=== PATIENT | female | born 1980 | race Caucasian/White ===

== ENCOUNTER 2018-05-22 13:44 | Emergency (ER) | payer BC ==
[~2018-05-22] VITALS: Ht 167.6 cm; Wt 72.1 kg
--- NOTE | 2018-05-22 13:50 | NUR ---
PT TO ROOM 11 TO IRRIGATE WOUND. WOUND IRRIGATE WITH STERILE WATER. 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
--- NOTE | 2018-05-22 14:07 | NUR ---
DIGITAL BLOCK COMPLETED. GAUZE DRESSING APPLIED AND SECURED WITH COBAN. BLEEDING CONTROLLED. FINGER PINK AND WARM.
[2018-05-22] MEDS ORDERED: NEOMYCIN/POLYMYX/BACITR OINT 0.9 GM PKT TOP ONE (14:15)
[2018-05-22] MEDS ORDERED: BUPIVACAINE HCL 0.5% 10ML MPF VIAL INJ ONE (15:00)
--- NOTE | 2018-05-22 15:25 | Diagnostic Imaging Report ---
Hand Complete CPT code: 49402 Indication:Crush injury Technique: Three views of the left hand obtained Comparison: None. Findings: Distal radius and ulna appear intact. Carpal bones appear generally well aligned. Fracture through the tuft of the distal phalanx of the fifth digit with 4 mm of separation between the proximal and distal fracture fragments. There is overlying soft tissue swelling. No dislocation of the proximal or distal IP joints. Remainder of the digits are intact. No radiopaque foreign bodies in the soft tissues surrounding the fifth digit. There are punctate densities over the third digit that are on the cassette. IMPRESSION: Fracture through the tuft of the distal phalanx of the fifth digit. Signed by: Dr. Dashawn Curtis MD on 05/22/2018 3:22 PM
[2018-05-22] MEDS ORDERED: LIDOCAINE HCL 1% LOCAL INJ 20 ML VIAL ONE (16:50)
[2018-05-22] MEDS ORDERED: CEFAZOLIN SOD 1 GM/D5W 50ML 50 ML IV ONE ×2 (16:51→17:00)
--- NOTE | 2018-05-22 17:00 | NUR ---
Dr. Pollack here at bedside.
[2018-05-22] MEDS ORDERED: MORPHINE SULFATE INJ 4 MG/ML INJ IV ONE (17:02)
[2018-05-22] MEDS ORDERED: MORPHINE SULFATE INJ 4 MG/ML INJ ONE (17:04)
[2018-05-22] MEDS ORDERED: ONDANSETRON HCL INJ 2 MG/ML VIAL ONE (17:04)
[2018-05-22] MEDS ORDERED: LIDOCAINE HCL 1% LOCAL INJ 20 ML VIAL INJ ONE (17:30)
--- NOTE | 2018-05-22 18:29 | Diagnostic Imaging Report ---
Fingers Indication: Post reduction Technique: Three views of the LEFT fifth digit obtained Comparison: X-rays 1424 hours Findings: Displaced fracture of the tuft of the distal phalanx of the fifth digit has been reduced. No ventral or dorsal displacement of the fracture fragments. There is mild medial displacement of the distal fracture fragment by approximately 1.5 mm. Remainder of the visualized structures are intact. IMPRESSION: Reduction of fracture of the tuft of the distal phalanx of the fifth digit. Signed by: Dr. Dashawn Curtis MD on 05/22/2018 6:26 PM
[2018-05-22] MEDS ORDERED: ONDANSETRON HCL INJ 2 MG/ML VIAL IV ONE (18:30)
[2018-05-22 19:37] VITALS: BP 139/84
--- NOTE | 2018-05-22 19:49 | NUR ---
CONSULTATION - ORTHOPEDICS 38 year old right hand dominant female presents to the ED with her after getting her left little finger caught in a door. Soon after the injury she wrapped her hand and presented to the ED. She denies any previous trauma to the finger. 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 Able to flex and extend MCP, PIP & DIP with proximal sensation intact Xrays demonstrates a 5th digit, distal phalanx tuft fracture 38 year old female with open fracture of the 5th distal phalanx and complex partial amputation of the 5th distal digit with nail bed laceration After tetanus immunity was confirmed, intravenous antibiotics was provided A digital block was provided with 1% lidocaine The left hand was cleaned with hibaclens and was prepped a draped under sterile conditions. The digit was thoroughly irrigated and the distal and proximal portion of the fractured nail was removed and placed in a sterile cup with peroxide The amputation was closed with chromic suture and nail bed was sutured into anatomic position. The hand was then cleaned again and the proximal portion of the nail was placed into the proximal portion of the nail bed to maintain the germinal matrix open. A sterile dressing was placed around the finger. Post procedure Xrays were obtained and reviewed by me demonstrating a reduced distal phalanx fracture in anatomic position. A splint was placed around the digit Patient encouraged to complete course of antibiotics Keep left upper extremity rested and elevated Follow up in one week in my office Discussed the potential of repair failing, infection, fracture non-union and need for amputation. NWB Left Upper Extremity Patient and aware and amendable to plan. All questions were answered. DO [facility]
== END 2018-05-22 19:10 | disposition home or self-care (01) ==
LOC: ER 13:44
DX: S68.127A Partial traumatic metacarpophalangeal amputation of left little finger, initial encounter (principal); S62.637B Displaced fracture of distal phalanx of left little finger, initial encounter for open fracture; W23.1XXA Caught, crushed, jammed, or pinched between stationary objects, initial encounter; Y92.008 Other place in unspecified non-institutional (private) residence as the place of occurrence of the external cause
CPT/HCPCS: 11760; 26755; 73140; 99284; J0690; J2001; J2270; J2405